=== PATIENT | male | born 1950 | race Hispanic/Latino ===

== ENCOUNTER 2017-03-10 11:30 | Emergency (ER) | payer MEDICARE ==
[2017-03-10 11:31] VITALS: BMI 28.8
[2017-03-10 11:35] VITALS: BP 155/79; PULSE 68; RESP 18; TEMP 97.4; O2SAT 97
--- NOTE | 2017-03-10 11:53 | C.PDOC ---
History Of Present Illness 67 year old patient presents to the ED complaining of pain and swelling to the right side of the nose for the past 5 days. Patient states he saw a pimple inside. Patient also complains of pain and a bump to the left wrist for an unknown time frame. He took Motrin with minimal relief. Patient denies fever or chills. Time Seen by Provider: 03/10/17 11:36 Chief Complaint (Nursing): ENT Problem History Per: Patient History/Exam Limitations: no limitations Onset/Duration Of Symptoms: Days (5) Current Symptoms Are (Timing): Still Present Severity: Mild Pain Scale Rating Of: 3 Recent travel outside of the [place]: No Past Medical History Reviewed: Historical Data, Nursing Documentation, Vital Signs Vital Signs: Last Vital Signs Temp 97.4 F L 03/10/17 11:34 Pulse 68 03/10/17 11:34 Resp 18 03/10/17 11:34 BP 155/79 H 03/10/17 11:34 Pulse Ox 97 03/10/17 14:14 - Medical History PMH: No Chronic Diseases Surgical History: Hernia Repair Family History: States: Unknown Family Hx - Social History Hx Tobacco Use: No Hx Alcohol Use: No Hx Substance Use: No - Immunization History Hx Tetanus Toxoid Vaccination: No Hx Influenza Vaccination: No Hx Pneumococcal Vaccination: No Review Of Systems Except As Marked, All Systems Reviewed And Found Negative. Constitutional: Negative for: Fever, Chills ENT: Positive for: Nose Pain (and swelling to the right side) Musculoskeletal: Positive for: Other (pain and bump to the left wrist) Physical Exam - Physical Exam Appears: Non-toxic, No Acute Distress Skin: Warm, Dry, Other (mild swelling, erytehma and warmth to the distal right nare with a small pimple on the inner aspect of the nare; soft cyst-like structure that is tender and mobile to the left wrist.) Head: Atraumatic, Normacephalic, No Swelling (facial) Eye(s): bilateral: Normal Inspection, PERRL, EOMI Ear(s): Bilateral: Normal Nose: No Discharge, No Epistaxis, No Deformity, Other (small white pustule just inside right nare. ) Throat: Normal, No Erythema Lymphatic: No Adenopathy Cardiovascular: Rhythm Regular, No Murmur Respiratory: Normal Breath Sounds, No Rales, No Rhonchi, No Wheezing ED Course And Treatment O2 Sat by Pulse Oximetry: 97 (RA) Pulse Ox Interpretation: Normal Disposition Counseled Patient/Family Regarding: Diagnosis, Need For Followup, Rx Given - Disposition Referrals: Philly Thakur MD [Staff Provider] - Alessandro Desai MD [Medical Doctor] - Disposition: HOME/ ROUTINE Disposition Time: 11:51 Condition: STABLE Additional Instructions: Take antibiotics as prescribed, and continue taking 600 mg Ibuprofen by mouth every 6 hours for pain. Follow up with your doctor in 2 days, on Sunday. Return to ER if redness and swelling to nose increases, pain increases, you develop a fever or for any other concerns. Follow up with Dr Thakur for pain in left hand. 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 - Scribe Statement The provider has reviewed the documentation as recorded by the Scribe Qi Costa All medical record entries made by the Scribe were at my direction and personally dictated by me. I have reviewed the chart and agree that the record accurately reflects my personal performance of the history, physical exam, medical decision making, and the department course for this patient. I have also personally directed, reviewed, and agree with the discharge instructions and disposition.
== END 2017-03-10 12:02 | disposition home or self-care (01) ==
LOC: C.ER 11:30
DX: J34.0 Abscess, furuncle and carbuncle of nose (principal); M67.432 Ganglion, left wrist

== ENCOUNTER 2017-10-31 10:06 | Emergency (ER) | payer MEDICARE ==
[2017-10-31 10:24] VITALS: BMI 30.4
[2017-10-31] MEDS ORDERED: Albuterol 0.083% Inhal Sol (2.5 mg/3 mL) UD INH STA (11:45)
[2017-10-31] MEDS ORDERED: Amoxicillin-Clav 875-125 mg Tab PO STA (11:46)
[2017-10-31] MEDS ORDERED: Albuterol HFA 90 mcg/actuation (8 g) INH STA (11:46)
--- NOTE | 2017-10-31 11:46 | C.PDOC ---
History Of Present Illness PT WAS WAITING 1.5 HOURS TO BE SEEN PRIOR TO MY SHIFT. 67 y/o male w/o significant PMHx presents to ED for evaluation on cold-like symptoms with associated nasal congestion, sore throat, dry cough, bilateral ear clogging and frontal headache for 3 days. Patient reports taking Tylenol with no improvement . Otherwise, pt denies fever, denies severe headache, dizziness, vertigo, neck pain, drooling, chest pain, wheezing, sob, dyspnea, abd. pain, N/V/D, back pain, UTI sx, denies recent travel or known sick contact. Ambulate to ED for evaluation, not in any apparent distress. Time Seen by Provider: 10/31/17 11:36 Chief Complaint (Nursing): Cough, Cold, Congestion History Per: Patient History/Exam Limitations: no limitations Onset/Duration Of Symptoms: Days Current Symptoms Are (Timing): Still Present Associated Symptoms: Cough, Nasal Congestion Past Medical History Reviewed: Historical Data, Nursing Documentation, Vital Signs Vital Signs: Last Vital Signs Temp 97.9 F 10/31/17 10:25 Pulse 94 H 10/31/17 10:25 Resp 20 10/31/17 10:25 BP 135/70 10/31/17 10:25 Pulse Ox 98 10/31/17 11:49 Surgical History: Hernia Repair Family History: States: No Known Family Hx - Social History Hx Tobacco Use: No Hx Alcohol Use: No Hx Substance Use: No - Immunization History Hx Tetanus Toxoid Vaccination: No Hx Influenza Vaccination: No Hx Pneumococcal Vaccination: No Review Of Systems Constitutional: Negative for: Fever, Chills ENT: Positive for: Ear Pain (Clogging), Throat Swelling Cardiovascular: Negative for: Chest Pain Respiratory: Positive for: Cough. Negative for: Shortness of Breath Skin: Negative for: Rash Neurological: Positive for: Headache Physical Exam - Physical Exam Appears: Non-toxic, No Acute Distress Skin: Normal Color, Warm, Dry, No Rash Head: Normacephalic Eye(s): bilateral: EOMI Ear(s): Bilateral: Normal Nose: Discharge (B/L nasla congestion with scant clear rhinorhhea) Oral Mucosa: Moist, Other (mild tendernes sover maxillary sinuses B/L, no edmea , or erythema.) Tongue: Normal Appearing Lips: Normal Appearing Teeth: Normal Dentition Throat: Erythema (B/L), No Exudate, No Drooling Neck: Trachea Midline, Supple Chest: Symmetrical Cardiovascular: Rhythm Regular, No JVD Respiratory: No Decreased Breath Sounds, No Accessory Muscle Use, No Rales, No Rhonchi, No Stridor, No Wheezing Gastrointestinal/Abdominal: Soft, No Tenderness Extremity: No Pedal Edema, Capillary Refill (<2 seconds) Neurological/Psych: Oriented x3, Normal Speech (Speaking in full sentences) ED Course And Treatment O2 Sat by Pulse Oximetry: 98 (RA) Pulse Ox Interpretation: Normal - Radiology CXR: Read By Radiologist CXR Interpretation: Yes: No Acute Disease Progress Note: CXR, Neb treatment, Prednisone ordered. On re-evaluation, pt is afebrile, hemodynamicaly stable. Non-toxic. Tolerate PO well in ED. PulseOx 98 % RA. ENT: exam c/w acute pharyngitis, acute sinusitis. neck: Supple, (-) meningeal sign. Lungs: CTA B/L, BS equal B/L. CVS: (+)S1S2, reg. Abd: benign. Neuorlogicaly intact. CXR review and appears normal. Pt advised. re.f to f/u with PMD in 2-3 days for re-eavl. return to ED if any worsening ro new changes Disposition Counseled Patient/Family Regarding: Diagnosis, Need For Followup, Rx Given - Disposition Referrals: Alessandro Desai MD [Medical Doctor] - Disposition: HOME/ ROUTINE Disposition Time: 12:15 Condition: STABLE Additional Instructions: ENCOURAGE FLUIDS TAKE MEDICATION PRESCRIBED FOLLOW UP WITH PMD IN 2-3 DAYS FOR RE-EVALUATION. RETURN TO ED IF ANY WORSENING OR NEW CHANGES. 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 - Scribe Statement The provider has reviewed the documentation as recorded by the Thanhibjovita Mcintosh All medical record entries made by the Scribe were at my direction and personally dictated by me. I have reviewed the chart and agree that the record accurately reflects my personal performance of the history, physical exam, medical decision making, and the department course for this patient. I have also personally directed, reviewed, and agree with the discharge instructions and disposition.
[2017-10-31] MEDS ORDERED: Albuterol 0.083% Inhal Sol (2.5 mg/3 mL) UD ONE (12:11)
[2017-10-31] MEDS ORDERED: Amoxicillin-Clav 875-125 mg Tab PO ONE (12:11)
--- NOTE | 2017-10-31 12:12 | RAD ---
HISTORY: Cough COMPARISON: 03/28/2016 TECHNIQUE: Chest PA and lateral FINDINGS: LUNGS: No active pulmonary disease. PLEURA: No significant pleural effusion identified. No pneumothorax apparent. CARDIOVASCULAR: Normal. OSSEOUS STRUCTURES: No significant abnormalities. VISUALIZED UPPER ABDOMEN: Normal. OTHER FINDINGS: None. IMPRESSION: No active disease.
[2017-10-31 12:41] VITALS: BP 135/74; PULSE 84; RESP 18; TEMP 97.8; O2SAT 97
== END 2017-10-31 13:02 | disposition home or self-care (01) ==
LOC: C.ER 10:06
DX: J32.9 Chronic sinusitis, unspecified (principal); J02.9 Acute pharyngitis, unspecified

== ENCOUNTER 2017-11-02 09:25 | Emergency (ER) | payer MEDICARE ==
[2017-11-02 09:26] VITALS: BMI 30.4
[2017-11-02 09:48] VITALS: BP 146/83; PULSE 68; RESP 18; TEMP 97.5; O2SAT 98
--- NOTE | 2017-11-02 11:14 | C.PDOC ---
History Of Present Illness 67 year old male with no PMH presents to ED for evaluation of nasal congestion , sore throat, bilateral ear clogging and frontal headache for 5 days. Patient reports he was seen in ED 2 days ago and taking Augmentin since yesterday and notes no improvement. He took Tylenol with out improvement. Otherwise, denies fever, severe headache, dizziness, neck pain, chest pain, sob. Time Seen by Provider: 11/02/17 10:22 Chief Complaint (Nursing): Headache History Per: Patient History/Exam Limitations: no limitations Onset/Duration Of Symptoms: Days Current Symptoms Are (Timing): Still Present Quality: "Pain" Recent travel outside of the [place]: No Past Medical History Reviewed: Historical Data, Nursing Documentation, Vital Signs Vital Signs: Last Vital Signs Temp 97.5 F L 11/02/17 09:47 Pulse 68 11/02/17 09:47 Resp 18 11/02/17 09:47 BP 146/83 11/02/17 09:47 Pulse Ox 98 11/02/17 13:14 - Medical History PMH: No Chronic Diseases Surgical History: Hernia Repair Family History: States: Unknown Family Hx - Social History Hx Tobacco Use: No Hx Alcohol Use: No Hx Substance Use: No - Immunization History Hx Tetanus Toxoid Vaccination: No Hx Influenza Vaccination: No Hx Pneumococcal Vaccination: No Review Of Systems Except As Marked, All Systems Reviewed And Found Negative. Constitutional: Negative for: Fever, Chills ENT: Positive for: Nose Congestion, Throat Pain Respiratory: Positive for: Cough. Negative for: Sputum, Wheezing Skin: Negative for: Rash Neurological: Positive for: Headache. Negative for: Weakness, Numbness, Dizziness Physical Exam - Physical Exam Appears: Non-toxic, No Acute Distress Skin: Warm, Dry Head: Atraumatic, Normacephalic, Tenderness (over bilateral maxillary sinuses, mild tenderness, no edema or erythema), No Swelling Eye(s): bilateral: Normal Inspection, PERRL, EOMI Ear(s): Bilateral: Normal Nose: Normal Oral Mucosa: Moist Throat: Normal, No Erythema, No Exudate, No Drooling Chest: Symmetrical Cardiovascular: Rhythm Regular, No Murmur Respiratory: Normal Breath Sounds, No Rales, No Rhonchi, No Wheezing Gastrointestinal/Abdominal: Soft, No Tenderness Back: Normal Inspection Extremity: Normal ROM, No Tenderness, Capillary Refill (< 2 sec.), No Deformity , No Swelling Neurological/Psych: Oriented x3, Normal Speech, Normal Cranial Nerves, No Cerebellar Signs Gait: Steady ED Course And Treatment O2 Sat by Pulse Oximetry: 98 Pulse Ox Interpretation: Normal Medical Decision Making Medical Decision Making: Patient with complaints of bilateral ear clogged, nasal congestion, yellow mucus , frontal headache. Patient denies blurred vision despite triage note. He states he just feels pressure and pain behind eyes and face. Patient has no neuro deficits and no eye complaints in ED. Symptoms consistent with sinusitis. Sudafed PO given. He is stable for discharge. Patient advised to continue antibiotics and to take decongestant and follow up with PCP. Disposition Counseled Patient/Family Regarding: Diagnosis, Need For Followup, Rx Given - Disposition Referrals: Alessandro Desai MD [Medical Doctor] - Disposition: HOME/ ROUTINE Disposition Time: 11:11 Condition: GOOD Additional Instructions: Please continue with your antibiotics. Try saline rinse to irrigate and wash sinus Take daily antihistamine and try decongestant as needed Please follow up with your primary medical doctor in 2-5 days for further evaluation. Return to the emergency department at any time if symptoms persist or worsen. 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 - Scribe Statement The provider has reviewed the documentation as recorded by the Scribe All medical record entries made by the Scribe were at my direction and personally dictated by me. I have reviewed the chart and agree that the record accurately reflects my personal performance of the history, physical exam, medical decision making, and the department course for this patient. I have also personally directed, reviewed, and agree with the discharge instructions and disposition.
== END 2017-11-02 11:34 | disposition home or self-care (01) ==
LOC: C.ER 09:25
DX: J32.9 Chronic sinusitis, unspecified (principal); R51 Headache